=== PATIENT | female | born 1990 | race Caucasian/White ===

== ENCOUNTER 2021-04-12 22:25 | Inpatient (IN) | payer OTHER ==
[~2021-04-12] VITALS: Ht 170.2 cm; Wt 75.0 kg
[2021-04-12 22:42] LABS: HEMOGLOBIN 15.5 gm/dl (12.3-15.3); RED BLOOD COUNT 5.03 M/UL (4.00-5.10); WHITE BLOOD COUNT 11.5 K/UL (4.5-11.0)
[2021-04-12 23:14] LABS: BUN/CREATININE RATIO 12 (0-10)
--- NOTE | 2021-04-13 17:56 | NUR ---
SLING APPLIED TO LEFT UPPER EXTREMITY PER ORDER FOR PATIENT COMFORT AT 1100. WILL CONTINUE TO MONITOR.
[2021-04-14 13:26] LABS: HEMOGLOBIN 13.7 gm/dl (12.3-15.3); RED BLOOD COUNT 4.51 M/UL (4.00-5.10)
[2021-04-14 13:51] LABS: BUN/CREATININE RATIO 20 (0-10)
[2021-04-14 23:57] LABS: WHITE BLOOD COUNT 13.1 K/UL (4.5-11.0)
[2021-04-14 23:59] LABS: RED BLOOD COUNT 3.62 M/UL (4.00-5.10)
[2021-04-15 07:47] LABS: RED BLOOD COUNT 3.66 M/UL (4.00-5.10)
[2021-04-15 07:49] LABS: WHITE BLOOD COUNT 17.5 K/UL (4.5-11.0)
--- NOTE | 2021-04-15 10:42 | NUR ---
04/15/21 PATIENT AT BEGINNING OF OF SHIFT HAD O2 SATS IN LOW 90'S, SOMETIMES DROPPING INTO THE UPPER 80'S. WHEN PROMPTED PATIENT WOULD USE INCENTIVE SPIROMETER AND DO SOME DEEP BREATHING TO IMPROVE O2 SATS. DR. MADSEN WAS INFORMED THAT PATIENT WAS HAVING DIFFICULTY MAINTAINING SUFFICICENT O2 SATS. DR MADSEN REITERATED THE NEED FOR TURN COUGH DEEP BREATH TO NURSE AND TALKED WITH PATIENT AND HER FATHER. DR. MADSEN TURNED OFF SUCTION TO PATIENTS CHEST TUBE AND ORDERED A CHEST X RAY FOR 2HOURS POST. ENZO CONTINUED TO HAVE DIFFICULTY BREATHING DEEPLY AND MAINTAINING O2 SATS. 87-88 BECAME THE BEST SHE COULD MAINTAIN. THE CHEST X RAY WAS BEING DONE DR. MADSEN HAPPENED TO CALL TO ASK ABOUT THE PATIENT'S STATUS. SHE WAS INFORMED OF THE LOW O2 SATS AND THE DIFFICULTY PATIENT WAS HAVING WITH BREATHING AND THAT THE PATIENT'S LUNGS SOUNDED CRACKLY. THE NURSE OFFERED THE OPINION FOR A SECOND TIME THAT THE PATIENT SHOULD PROBABLY BE MOVED TO A HIGHER ACCUITY FLOOR. DR. MADSEN WANTED TO KNOW IF THE CHEST X RAY HAD BEEN DONE AND THAT WAS AFFIRMED. AT THAT POINT DR. MADSEN SAID SHE WOULD PUT IN THE ORDER FOR THE PATIENT TO BE MOVED TO ICU. HOUSE WAS CALLED FOR A BED, THE ORDER WAS PUT IN FOR TRANSFER, REPORT WAS CALLED WHEN THE BED BECAME AVAILABLE AND THE DEEPAK WAS TRANSFERRED TO ICU AT APPROXIMATELY 1400.
[2021-04-16 06:27] LABS: RED BLOOD COUNT 3.31 M/UL (4.00-5.10); WHITE BLOOD COUNT 23.1 K/UL (4.5-11.0)
[2021-04-17 01:11] LABS: ACINETOBACTER BAUMANNII Not Detected (Negative); CANDIDA ALBICANS Not Detected (Negative); CANDIDA KRUSEI Not Detected (Negative); CANDIDA TROPICALIS Not Detected (Negative); ENTEROCOCCUS Not Detected (Negative); ESCHERICHIA COLI Not Detected (Negative); HAEMOPHILUS INFLUENZAE Not Detected (Negative); KLEBSIELLA OXYTOCA Not Detected (Negative); KLEBSIELLA PNEUMONIAE Not Detected (Negative); KPC-CARBAPENEM-RESISTANCE GENE Not Detected (Negative); PROTEUS Not Detected (Negative); PSEUDOMONAS AERUGINOSA Not Detected (Negative); SERRATIA MARCESANS Not Detected (Negative); STAPHYLOCOCCUS AUREUS Not Detected (Negative); STREP AGALACTIAE (GROUP B) Not Detected (Negative); STREP PYOGENES (GROUP A) Not Detected (Negative); STREPTOCOCCUS Not Detected (Negative); vanA/B (VANCOMYCIN RESIST GENE Not Detected (Negative)
[2021-04-17 02:28] LABS: STAPHYLOCOCCUS DETECTED (Negative); mecA (METHICILLIN RESIST GENE DETECTED (Negative)
[2021-04-17 06:25] LABS: HEMOGLOBIN 9.3 gm/dl (12.3-15.3); RED BLOOD COUNT 3.01 M/UL (4.00-5.10); WHITE BLOOD COUNT 21.7 K/UL (4.5-11.0)
[2021-04-18 04:24] LABS: HEMOGLOBIN 8.1 gm/dl (12.3-15.3); RED BLOOD COUNT 2.72 M/UL (4.00-5.10)
[2021-04-18 04:40] LABS: WHITE BLOOD COUNT 10.8 K/UL (4.5-11.0)
[2021-04-19 05:24] LABS: HEMOGLOBIN 7.9 gm/dl (12.3-15.3); RED BLOOD COUNT 2.64 M/UL (4.00-5.10); WHITE BLOOD COUNT 8.9 K/UL (4.5-11.0)
[2021-04-20 06:26] LABS: HEMOGLOBIN 8.3 gm/dl (12.3-15.3); RED BLOOD COUNT 2.81 M/UL (4.00-5.10); WHITE BLOOD COUNT 9.2 K/UL (4.5-11.0)
[2021-04-21 04:48] LABS: HEMOGLOBIN 7.9 gm/dl (12.3-15.3); RED BLOOD COUNT 2.67 M/UL (4.00-5.10)
[2021-04-22 05:42] LABS: BUN/CREATININE RATIO 21 (0-10)
[2021-04-23] MEDS ORDERED: PERCOCET 5/325 T1 EA PO ×4 (11:49→12:06)
[2021-04-23] MEDS ORDERED: ZOFRAN ODT 4 MG4 MG GT ×2 (11:49→12:06)
[2021-04-23] MEDS ORDERED: CYCLOBENZAPRINE10 MG PO ×2 (11:49→12:06)
--- NOTE | 2021-04-23 12:50 | NUR ---
PT DISCHARGED HOME PER ORDER. IV REMOVED, PT TOLERATED WELL. DISCHARGE EDUCATION COMPLETED. NEW MEDICATIONS EXPLAIN. PT ADVISED TO FOLLOW-UP WITH DR. MADSEN AND PRIMARY CARE PROVIDED. PT VERBALIZED THAT SHE WOULD FOLLOW UP AND PLANS ON SEEING HER PRIMARY CARE PROVIDER TOMORROW. PT ASSISTED TO VEHICLE WITH FATHER PER ANOTHER RN. STABLE, ALERT AND ORIENTED AT TIME OF DISCHARGE.
== END 2021-04-23 13:03 | disposition home or self-care (01) | DRG 208 ==
LOC: ER1 22:25 → CDU 04-13 01:02 → M/S 04-13 01:02 → CCU 04-14 16:14
PROVIDERS: Family Medicine; Internal Medicine Pulmonary Disease; ADMIT Surgery
PROC: 5A1945Z Respiratory Ventilation, 24-96 Consecutive Hours (ICD-10-PCS; principal; 2021-04-14)
PROC: 0BH17EZ Insertion of Endotracheal Airway into Trachea, Via Natural or Artificial Opening (ICD-10-PCS; principal; 2021-04-14)
PROC: 0W9B30Z Drainage of Left Pleural Cavity with Drainage Device, Percutaneous Approach (ICD-10-PCS; 2021-04-14)
PROC: 3E033XZ Introduction of Vasopressor into Peripheral Vein, Percutaneous Approach (ICD-10-PCS; 2021-04-14)
PROC: 0B9J8ZZ Drainage of Left Lower Lung Lobe, Via Natural or Artificial Opening Endoscopic (ICD-10-PCS; 2021-04-14)
PROC: 0B9G8ZZ Drainage of Left Upper Lung Lobe, Via Natural or Artificial Opening Endoscopic (ICD-10-PCS; 2021-04-14)
PROC: 02HV33Z Insertion of Infusion Device into Superior Vena Cava, Percutaneous Approach (ICD-10-PCS; 2021-04-14)
PROC: B548ZZA Ultrasonography of Superior Vena Cava, Guidance (ICD-10-PCS; 2021-04-14)
PROC: 0DH63UZ Insertion of Feeding Device into Stomach, Percutaneous Approach (ICD-10-PCS; 2021-04-17)
PROC: 3E0G76Z Introduction of Nutritional Substance into Upper GI, Via Natural or Artificial Opening (ICD-10-PCS; 2021-04-17)
DX: S27.2XXA Traumatic hemopneumothorax, initial encounter (principal); J96.01 Acute respiratory failure with hypoxia; Z20.822 Contact with and (suspected) exposure to COVID-19; A41.9 Sepsis, unspecified organism; K72.00 Acute and subacute hepatic failure without coma; N17.0 Acute kidney failure with tubular necrosis; J18.9 Pneumonia, unspecified organism; S27.329A Contusion of lung, unspecified, initial encounter; S22.42XA Multiple fractures of ribs, left side, initial encounter for closed fracture; G93.40 Encephalopathy, unspecified; R57.9 Shock, unspecified; G25.81 Restless legs syndrome; E87.6 Hypokalemia; D64.9 Anemia, unspecified; D72.828 Other elevated white blood cell count; T38.0X5A Adverse effect of glucocorticoids and synthetic analogues, initial encounter; S42.102A Fracture of unspecified part of scapula, left shoulder, initial encounter for closed fracture; F19.10 Other psychoactive substance abuse, uncomplicated; V89.2XXA Person injured in unspecified motor-vehicle accident, traffic, initial encounter
CPT/HCPCS: 32551; 36415; 36600; 51702; 70450; 71045; 71046; 71260; 72125; 80048; 80053; 80076; 80202; 80307; 81001; 82140; 82550; 82553; 82803; 82962; 83605; 83615; 83690; 83735; 83880; 84100; 84132; 84484; 85025; 85027; 85379; 85384; 85610; 85730; 86140; 86850; 86900; 86901; 86920; 87040; 87070; 87077; 87081; 87086; 87150; 87186; 87205; 93005; 94003; 94640; 94660; 94664; 94760; 97161; 97165; 99285; C1751; C9113; G0480; J0171; J0330; J1170; J1650; J1885; J1940; J2185; J2250; J2270; J2370; J2405; J2704; J3010; J3370; J3480; J7030; J7070; P9047; Q9967; U0002